=== PATIENT | male | born 1965 | race Caucasian/White ===

== ENCOUNTER 2018-02-08 08:40 | Observation (INO) ==
[2018-02-08] MEDS ORDERED: Aspirin 81 MG TAB.CHEW PO ONE (08:56)
[2018-02-08] MEDS ORDERED: Nitroglycerin 0.4 MG TAB.SUBL SL PRN (09:11)
--- NOTE | 2018-02-08 09:17 | Emergency Department Note ---
Disposition Clinical Impression: Elevated troponin, Atypical chest pain Pulmonary embolism Qualifiers: Pulmonary embolism type: other Chronicity: acute Acute cor pulmonale presence: without acute cor pulmonale Qualified Code(s): I26.99 - Other pulmonary embolism without acute cor pulmonale Disposition: Admitted As Inpatient Condition: Fair Referrals: Kyung Mancia CNP [Primary Care Provider] - Forms: ED Satisfaction Letter General Adult HPI - General Chief complaint: ED Chest Pain Stated complaint: CP Time Seen by Provider: 02/08/18 08:52 Nursing Notes Reviewed: Yes Vital Signs Reviewed: Yes - History of Present Illness HPI Narrative: Chief complaint is chest pain History this is a 52-year-old gentleman who comes in today complaining of pain that started across the right side of his upper chest going to the left side and was in both his scapulas. He said that started about 8:00 this morning he had no pain previous to that no nausea no shortness of breath at the time but then when he his thinks he was short of breath denies any diaphoresis. She was said he was fairly pale at the time came to her over at work and within the hour the pain is pretty much gone except from the back of his arms he said the pain was about a 7 and now is about a 2-4. He is resting comfortably. He denies any history of chest pain in the past no history of pulmonary embolisms no history of PE on no history of cardiac disease that he is aware of he does have high cholesterol and diabetes however he does have heart disease in his family but not at an early age. He does not take aspirin and did receive that here. He denies any reproducibility of the pain. Past medical history reviewed in nurse's notes reviewed family and social history reviewed. Pain Scale: 6 - Related Data Home Medications Medication Instructions Recorded Confirmed Ranitidine HCl [Zantac] 150 mg PO DAILY 07/04/15 02/08/18 metFORMIN [Glucophage] 1,000 mg PO BIDWM 07/04/15 02/08/18 Fenofibrate [Lofibra] 160 mg PO DAILY 04/16/16 02/08/18 Insulin Glargine,Hum.rec.anlog 15 unit SQ QAM 02/08/18 02/08/18 [Basaglar [place]pen U-100] Insulin Glargine,Hum.rec.anlog 30 unit SQ QPM 02/08/18 02/08/18 [Veronique Dowell U-100] Previous Rx's Medication Instructions Recorded Venlafaxine XR (24 HR) [Effexor Xr] 37.5 mg PO DAILY #30 cap.er.24h 12/16/16 Allergies Allergy/AdvReac Type Severity Reaction Status Date / Time No Known Allergies Allergy Verified 04/16/16 07:31 Review of Systems: Review of systems are positive for some shortness of breath and pain across his back and chest chest pain is now resolved remaining review of systems are negative. All systems ED: reviewed and negative except as stated. Past Medical History - Past Medical History Medical history: Reports: cancer, diabetes, GERD Psychiatric history: Reports: no psych history - Social History Smoking Status: Never smoker Smokeless Tobacco Status: No Alcohol use: Reports: none Drug use: Reports: none Physical Exam Temperature is 97.6 pulse is 65 and regular respirations are 15 and unlabored BP is 126/83 sets 100% on room air he is resting comfortably HEENT is normocephalic airways midline there is no drooling or stridor weeks members are moist neck is supple he has no scleral icterus is no cervical tenderness Cardia vascular is regular rate and rhythm without rubs or JVD Lungs are clear to auscultation bilaterally with good aeration his abdomen is soft nonsurgical good bowel sounds no masses Chest caceres free of trauma and tenderness he has a little bit a reproducible pain along the rhomboids of both scapulas. No signs of trauma no bony tenderness Extremities are present 4 good distal pulses Refill is brisk no pitting edema no calf tenderness Dermatologic skin is warm and dry without rash petechia or jaundice neurologic no further deficits cranial nerve motor sensory exam alert person place and time GCS is 15 Course Vital Signs Temperature 97.6 F 02/08/18 08:43 Pulse Rate 65 02/08/18 08:43 Respiratory Rate 15 02/08/18 08:43 Blood Pressure 126/83 02/08/18 08:43 O2 Sat by Pulse Oximetry 100 02/08/18 08:43 Temperature 97.6 F 02/08/18 09:42 Pulse Rate 75 02/08/18 09:59 Respiratory Rate 16 02/08/18 09:59 Blood Pressure 113/78 02/08/18 09:59 O2 Sat by Pulse Oximetry 98 02/08/18 09:59 Oxygen Delivery Oxygen Delivery Room Air Medical Decision Making - [facility] Narrative Medical decision making narrative: 0855 hours patient had an EKG performed shows a sinus rhythm his rate is 67 his QRS is 135 QTc is 424 no signs of ischemia he does have a right bundle branch block. Compared this with an EKG that he had done in 2016 shows a similar pattern at that time with a rate of 63. Denies start a cardiac workup nitroglycerin trial aspirin and reassess. He is in agreement with this plan. 951 hours: Patient's d-dimer is positive at more than 10 times his age. We will get a CTA to rule out PE he is low risk on well's criteria. Perc criteria cannot be used due to his age. His troponin is still pending and chest x-ray is return. Chest X-Ray 02/08/18 08:56 IMPRESSION: No acute cardiopulmonary disease D/ / Fortino Garcia MD / Fortino Garcia MD Interpreting Provider: Fortino Garcia MD 0955 hrs.: Patient's troponin is 0.06. Denies any pain at this time. We will do the CTA of his chest to rule out PE then he will need admission. Patient is updated on status. 1000 hrs.: Updated patient. He is pain-free he did get 1 nitroglycerin B think his pain was resolving prior to that. Update them on the status the CTA and admission and he is in agreement with the plan as is his . Chest X-Ray 02/08/18 08:56 IMPRESSION: No acute cardiopulmonary disease D/ / Fortino Garcia MD / Fortino Garcia MD Interpreting Provider: Fortino Garcia MD Chest CTA 02/08/18 09:53 IMPRESSION: 1. Right middle and right lower lobe pulmonary emboli with no evidence of infarct 2. Diffuse thyroid enlargement. This finding has been previously evaluated with ultrasound D/ / Chance Christensen MD / Chance Christensen MD Interpreting Provider: Chance Christensen MD 1056 hrs.: Patient does have PE and right middle and lower lobe started him on heparin for DVT and PE and will admit him with chest pain rule out ACS and PE. Patient's in agreement with plan. 1129 hrs.: Hospice his callback and accepted patient for admission. Patient's in agreement with admission. Started on heparin. - Lab Data Result diagrams: 02/08/18 09:14 02/08/18 09:14 Lab Results 02/08/18 02/08/18 02/08/18 Range/Units 09:14 09:14 09:14 WBC 6.4 (4.3-11.1) K/mcL RBC 4.59 (4.19-5.50) M/mcL Hgb 13.9 (12.9-16.9) g/dL Hct 39.5 (37.5-50.1) % MCV 86.1 (83.0-100.0) fL MCH 30.3 (28.0-33.3) pg MCHC 35.2 (31.6-35.5) g/dL RDW 13.2 (11.5-14.5) % Plt Count 178 (140-400) K/mcL MPV 13.3 H (9.4-12.4) fL Immature Gran % 0.3 (0-4) % Seg Neutrophils % 43.8 % Lymphocytes % 43.8 % Monocytes % 9.6 % Eosinophils % 1.9 % Basophils % 0.6 % Neutrophils # 2.8 (1.6-8.9) K/mcL Lymphocytes # 2.8 (0.6-4.6) K/mcL Monocytes # 0.6 (0.0-1.3) K/mcL Eosinophils # 0.1 (0.0-0.6) K/mcL Basophils # 0.0 (0.0-0.2) K/mcL APTT 32.2 (26.0-36.0) Seconds D-Dimer 688 H (0-500) ng/mLFEU Sodium 136 (136-145) mEq/L Potassium 3.8 (3.5-5.1) mEq/L Chloride 105 (98-107) mEq/L Carbon Dioxide 23 (23-29) mEq/L BUN 15 (6-20) mg/dL Creatinine 0.98 (0.70-1.30) mg/dL Est GFR ( Amer) > 60 (> 60) Est GFR (Non-Af Amer) > 60 (> 60) BUN/Creatinine Ratio 15 (6-26) Glucose 170 H (70-105) mg/dL Calculated Osmolality 287 (280-300) Calcium 9.0 (8.6-10.3) mg/dL Troponin I 0.06 H* (< 0.04) ng/mL Critical Care Time Critical Care Time: Yes Total Critical Care Time: 40 Attestation: Excluding any separately billable procedures
[2018-02-08 09:35] LABS: Basophils % 0.6 %; Eosinophils # 0.1 K/mcL (0.0-0.6); Eosinophils % 1.9 %; Hematocrit 39.5 % (37.5-50.1); Hemoglobin 13.9 g/dL (12.9-16.9); Immature Granulocytes % 0.3 % (0-4); Lymphocytes # 2.8 K/mcL (0.6-4.6); Lymphocytes % 43.8 %; Mean Corpuscular HGB Conc 35.2 g/dL (31.6-35.5); Mean Corpuscular Hemoglobin 30.3 pg (28.0-33.3); Mean Corpuscular Volume 86.1 fL (83.0-100.0); Mean Platelet Volume 13.3 fL (9.4-12.4); Monocytes # 0.6 K/mcL (0.0-1.3); Monocytes % 9.6 %; Neutrophils # 2.8 K/mcL (1.6-8.9); Platelet Count 178 K/mcL (140-400); Red Blood Count 4.59 M/mcL (4.19-5.50); Red Cell Distribution Width 13.2 % (11.5-14.5); Segmented Neutrophils % 43.8 %
[2018-02-08 09:45] LABS: Activated Partial Thrombo Time 32.2 Seconds (26.0-36.0)
[2018-02-08] MEDS ORDERED: 0.9 % Sodium Chloride 1,000 ML IVC ONE (09:52)
[2018-02-08 09:53] LABS: Troponin I 0.06 ng/mL (< 0.04)
[2018-02-08] MEDS ORDERED: Isovue-370 500 ML INFUS..BTL IV ONE (09:53)
[2018-02-08 09:54] LABS: BUN/Creatinine Ratio 15 (6-26); Blood Urea Nitrogen 15 mg/dL (6-20); Carbon Dioxide 23 mEq/L (23-29); Chloride 105 mEq/L (98-107); Glucose 170 mg/dL (70-105); Osmolality,Calculated 287 (280-300); Potassium 3.8 mEq/L (3.5-5.1); Sodium 136 mEq/L (136-145); eGFR For Non-African Americans > 60 (> 60)
[2018-02-08] MEDS ORDERED: *HR* Heparin 5,000 UNIT/ML VIAL IVP PRN ×2 (10:54)
[2018-02-08] MEDS ORDERED: *HR* Heparin 5,000 UNIT/ML VIAL IVP ONE (10:54)
[2018-02-08] MEDS: Heparin 25,000 UNIT/500 ML D5W 25,000 UNIT/500 ML BAG IVC SCH (11:26)
[2018-02-08 11:57] LABS: Heparin anti-factor XA UFH 0.04 IU/mL (0.30-0.70)
[2018-02-08 11:58] LABS: Prothrombin Time 11.5 Seconds (9.4-12.1)
[2018-02-08] MEDS ORDERED: Naloxone 0.4 MG/ML INJ IVP PRN (14:07)
[2018-02-08] MEDS ORDERED: D5% in Water 1,000 ML IVC PRN (14:20)
[2018-02-08] MEDS ORDERED: Dextrose Gel 15 GM/37.5 ML TUBE PO PRN ×2 (14:20)
[2018-02-08] MEDS ORDERED: *HR* Dextrose 50 % in Water (Syg) 50 ML SYRINGE IVP PRN (14:20)
--- NOTE | 2018-02-08 14:34 | Internal Med History&Physical ---
<Carl Alves P - Last Filed: 02/08/18 14:25> Date of Encounter: 02/08/18 Time of Encounter: 13:40 Internal Medicine - H&P: HPI Chief complaint: Chest pain Admitted From: Home Plans for Post Hospital Care: Home History of present illness: Mr. Gutierrez is a 52 year old male with past medical history significant for hyperlipidemia and diabetes who presents for 7/10 sharp chest pain across his chest, radiating across his upper back, and down both arms that started suddenly this morning. Patient reports feeling hot when his symptoms started but denies shortness of breath, diaphoresis, or nausea. reports patient did seem short of breath and appeared pale to her. Denies any treatment at home prior to arrival. Received aspirin and one nitroglycerin dose in ER. Is now reporting 1/10 pain only in his upper back. No prior history of DVT, PE, or other cardiac history besides hyperlipidemia. Reports mother and maternal uncle with cardiac history including open heart surgery. Past Med Surg Social Fam HX - Past Medical History Medical history: cancer, diabetes, GERD, hyperlipidemia Additional medical history: melanoma Psychiatric history: no psych history - Past Surgical History Additional surgical history: axillary node dissection left shoulder melona,port placed and removed,colonoscopy - Social History Smoking Status: Never smoker Smokeless Tobacco Status: No Alcohol use: none Drug use: none - Family History Mother Living Status: Age at : 93 Hx Family Cardiac Disorders: Yes Internal Medicine - H&P: Meds Ranitidine HCl [Zantac] 150 mg PO DAILY 07/04/15 [History] metFORMIN [Glucophage] 1,000 mg PO BIDWM 07/04/15 [History] Fenofibrate [Lofibra] 160 mg PO DAILY 04/16/16 [History] Venlafaxine XR (24 HR) [Effexor Xr] 37.5 mg PO DAILY #30 cap.er.24h 12/16/16 [Rx ] Insulin Glargine,Hum.rec.anlog [Basaglar Kwikpen U-100] 15 unit SQ QAM 02/08/18 [History] Insulin Glargine,Hum.rec.anlog [Basaglar Kwikpen U-100] 30 unit SQ QPM 02/08/18 [History] 3 Allergy/AdvReac Type Severity Reaction Status Date / Time No Known Allergies Allergy Verified 04/16/16 07:31 All Systems PM: A 10-system review of systems was performed and is negative for pertinent findings except as documented above in the HPI. - Constitutional Vitals: Temp Pulse Resp BP Pulse Ox 98.3 F 70 15 119/74 99 02/08/18 12:55 02/08/18 12:55 02/08/18 12:55 02/08/18 12:55 02/08/18 12:55 Exam: General: Alert and oriented. In no acute distress. Skin:Normal color, no rash, no lesions. HEENT:EOM, pupils equal, round and reactive. Cardiovascular:Normal S1 & S2, no rubs, murmurs or gallops. No JVD. Pulse regular. Lungs:Normal breath sounds, no wheezes or crackles. Respirations easy and non labored. Abdomen:Soft, non-tender, no rigidity. Extremities:No deformity, no edema or tenderness, no joint swelling or clubbing. Neurological:Normal cognition and motor skills. Pulses:Carotid and radial pulses normal +2. Rest of the physical exam is non contributory. Internal Med - H&P Results - Labs CBC & Chem 7: 02/08/18 09:14 02/08/18 09:14 - Assessment and plan (1) Pulmonary embolism Current Visit: Yes Status: Acute Assessment and plan: Right middle and right lower lobe PE on CTA of chest. Heparin drip started in ER, continue same. Continuous director of cardiac cath lab. Nasal canula oxygen as needed to maintain saturation above 92%. Bilateral lower extremity dopplers ordered. Qualifiers: Pulmonary embolism type: other Chronicity: acute Qualified Code(s): I26.99 - Other pulmonary embolism without acute cor pulmonale (2) Elevated troponin Current Visit: Yes Status: Acute Assessment and plan: ER EKG reported sinus rhythm with right bundle branch block unchanged from previous EKG. Continuous director of cardiac cath lab. Echo ordered. (3) Diabetes mellitus Current Visit: Yes Status: Chronic Assessment and plan: Blood sugar checks ACHS. Hold home medications. Start ACHS sliding scale during stay. 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 Gutierrez is a 52 year old male All Systems PM: A 10-system review of systems was performed and is negative for pertinent findings except as documented above in the HPI. - Constitutional Vitals: Temp Pulse Resp BP Pulse Ox 98.3 F 70 15 119/74 99 02/08/18 12:55 02/08/18 12:55 02/08/18 12:55 02/08/18 12:55 02/08/18 12:55 Internal Med - H&P Results - Labs CBC & Chem 7: 02/08/18 09:14 02/08/18 09:14 - Assessment and plan (1) Pulmonary embolism Current Visit: Yes Status: Acute Qualifiers: Pulmonary embolism type: other Chronicity: acute Qualified Code(s): I26.99 - Other pulmonary embolism without acute cor pulmonale (2) Elevated troponin Current Visit: Yes Status: Acute (3) Diabetes mellitus Current Visit: Yes Status: Chronic Qualifiers: Diabetes mellitus type: type 2 Diabetes mellitus oysterman insulin use: with oysterman use Diabetes mellitus complication status: without complication Qualified Code(s): E11.9 - Type 2 diabetes mellitus without complications; Z79.4 - roasterman (current) use of insulin - Time Spent With Patient Total time spent is greater than 50% in coordination of care (as documented) at patient's floor/unit and/or counseling patient: - Attending Attestation Patient was seen and examined in the emergency room with his spouse at his bedside on 02/08/18 hemodynamically stable, nontender respiratory or painful distress. Acute pulmonary embolism without heartstring. Continue heparin. Patient is not hypoxic. The rest of details is as in MAYI Alves's documentation.
[2018-02-08] MEDS: Fenofibrate 54 MG TABLET PO SCH (16:21)
[2018-02-08] MEDS: Venlafaxine XR (24 HR) 37.5 MG CAP.ER.24H PO SCH (16:21)
[2018-02-08] MEDS: Famotidine 20 MG TABLET PO SCH (16:21)
[2018-02-08] MEDS: Insulin LISPRO 300 UNITS/3 ML VIAL SQ SCH (18:02)
[2018-02-08] MEDS ORDERED: Perflutren Lipid Microsphere 1.3 ML in 0.9 % Sodium Chloride 8.7 ML IVP ONE (19:42)
[2018-02-08] MEDS ORDERED: Insulin LISPRO 300 UNITS/3 ML VIAL SQ SCH (21:00)
[2018-02-08] MEDS ORDERED: *HR* Acetaminophen w/Cod 300-30 mg 1 TAB TABLET PO ONE (22:26)
[2018-02-09 01:23] LABS: Basophils # 0.1 K/mcL (0.0-0.2); Basophils % 0.9 %; Eosinophils # 0.2 K/mcL (0.0-0.6); Hematocrit 38.3 % (37.5-50.1); Hemoglobin 13.1 g/dL (12.9-16.9); Immature Granulocytes % 0.2 % (0-4); Lymphocytes # 4.7 K/mcL (0.6-4.6); Lymphocytes % 57.9 %; Mean Corpuscular HGB Conc 34.2 g/dL (31.6-35.5); Mean Corpuscular Hemoglobin 29.8 pg (28.0-33.3); Mean Corpuscular Volume 87.2 fL (83.0-100.0); Monocytes # 0.7 K/mcL (0.0-1.3); Monocytes % 8.3 %; Neutrophils # 2.5 K/mcL (1.6-8.9); Platelet Count 175 K/mcL (140-400); Red Blood Count 4.39 M/mcL (4.19-5.50); Red Cell Distribution Width 13.5 % (11.5-14.5); Segmented Neutrophils % 30.7 %
[2018-02-09 01:49] LABS: BUN/Creatinine Ratio 13 (6-26); Blood Urea Nitrogen 12 mg/dL (6-20); Calcium 8.9 mg/dL (8.6-10.3); Carbon Dioxide 22 mEq/L (23-29); Chloride 108 mEq/L (98-107); Glucose 153 mg/dL (70-105); Osmolality,Calculated 291 (280-300); Potassium 3.9 mEq/L (3.5-5.1); Sodium 139 mEq/L (136-145); eGFR For Non-African Americans > 60 (> 60)
--- NOTE | 2018-02-09 06:14 | Electrocardiograph Report ---
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
[2018-02-09] MEDS: Venlafaxine XR (24 HR) 37.5 MG CAP.ER.24H PO SCH (09:20)
[2018-02-09] MEDS: Fenofibrate 54 MG TABLET PO SCH (09:20)
[2018-02-09] MEDS: Famotidine 20 MG TABLET PO SCH (09:20)
[2018-02-09] MEDS: Insulin LISPRO 300 UNITS/3 ML VIAL SQ SCH ×2 (09:21→12:57)
[2018-02-09] MEDS: Heparin 25,000 UNIT/500 ML D5W 25,000 UNIT/500 ML BAG IVC SCH (09:28)
[2018-02-09 11:34] VITALS: BP 109/69
--- NOTE | 2018-02-09 12:29 | Internal Med Progress Note ---
Hospitalist Progress Note - Encounter Date of Encounter: 02/09/18 Time of Encounter: 12:30 - Exam Vitals: Temp Pulse Resp BP Pulse Ox 98.4 F 75 18 109/69 97 02/09/18 11:33 02/09/18 11:33 02/09/18 11:33 02/09/18 11:33 02/09/18 11:33 Exam: General: Alert and oriented. In no acute distress. Skin:Normal color, no rash, no lesions. HEENT:EOM, pupils equal, round and reactive. Cardiovascular:Normal S1 & S2, no rubs, murmurs or gallops. No JVD. Pulse regular. Lungs:Normal breath sounds, no wheezes or crackles. Respirations easy and non labored. Abdomen:Soft, non-tender, no rigidity. Extremities:No deformity, no edema or tenderness, no joint swelling or clubbing. Neurological:Normal cognition and motor skills. Pulses:Carotid and radial pulses normal +2. Rest of the physical exam is non contributory. - Assessment and Plan (1) Pulmonary embolism Current Visit: Yes Status: Acute Assessment and Plan: Right middle and right lower lobe PE on CTA of chest. Heparin drip started in the ER and we will switch him to xarelto. Spoke with hematology who determined no acute need to see him inpatient and will follow up with him as an outpatient Bilateral lower extremity dopplers came back preliminary WNL (2) Elevated troponin Current Visit: Yes Status: Acute Assessment and Plan: ER EKG reported sinus rhythm with right bundle branch block unchanged from previous EKG. Continuous nurse monitoring. Echo ordered. (3) Diabetes mellitus Current Visit: Yes Status: Chronic Assessment and Plan: Blood sugar checks ACHS. Hold home medications. Start ACHS sliding scale during stay. - Time Spent with Patient Total time spent is greater than 50% in coordination of care (as documented) at patient's floor/unit and/or counseling patient: Internal Medicine: Result - Labs CBC & Chem 7: 02/09/18 00:55 02/09/18 00:55 Labs: Short CBC 02/09/18 Range/Units 00:55 WBC 8.1 (4.3-11.1) K/mcL Hgb 13.1 (12.9-16.9) g/dL Hct 38.3 (37.5-50.1) % Plt Count 175 (140-400) K/mcL Neutrophils # 2.5 (1.6-8.9) K/mcL BMP 02/09/18 00:55 Sodium 139 Potassium 3.9 Chloride 108 H Carbon Dioxide 22 L BUN 12 Creatinine 0.93 Glucose 153 H Calcium 8.9 - ABG Interpretation ABG results: PT/INR, D-dimer PT 11.5 Seconds (9.4-12.1) 02/08/18 11:21 D-Dimer 688 ng/mLFEU (0-500) H 02/08/18 09:14 - Impressions Impressions Echocardiogram 02/08/18 14:23 Impressions: LVEF 70%. Normal LV chamber size, wall thickness and function. Normal left ventricular diastolic function. Normal right ventricular structure and function. No significant valvular dysfunction. IVC not seen, indeerminate pulmonary pressures, likely normal. Left Ventricular Wall Motion: Rest Echo Findings All wall segments showed normal motion. Findings: Study Quality * Technically adequate exam. ECG Findings * Normal sinus rhythm. Left Ventricle * LVEF 70%. * Normal LV chamber size, wall thickness and function. * Normal left ventricular diastolic function. Right Ventricle * Normal right ventricular structure and function. Left Atrium * Normal left atrial size. Right Atrium * Normal right atrial size. Interatrial Septum * Interatrial septum not well evaluated. Aortic Valve * Trileaflet aortic valve. * Trileaflet aortic valve with normal function. Mitral Valve * Normal mitral valve structure and function. * Trace mitral regurgitation. Tricuspid Valve * Normal tricuspid valve structure and function. * Mild tricuspid regurgitation. * Estimated RA pressure is IVC not seen mmHg. * Estimated RVSP is RV-RA gradient 18 (normal) mmHg. Pulmonic Valve * Normal pulmonic valve structure and function. Aorta * Normally sized aortic root. Pericardium * The pericardium appears normal. IVC * The IVC is not well evaluated. - VTE Reasons for not Prescribing Prophylaxis: Not indicated-Anticoagulated or INR therapeutic Consult Discharge Plan - Plan Referrals: Kyung Mancia CNP [Primary Care Provider] - Prescriptions: Rivaroxaban [Xarelto] 15 mg PO BID 21 Days #42 tablet Rivaroxaban [Xarelto] 20 mg PO DAILY 90 Days #90 tablet (1) Pulmonary embolism Qualifiers: Pulmonary embolism type: other Chronicity: acute (3) Diabetes mellitus Qualifiers: Diabetes mellitus type: type 2 Diabetes mellitus fpc insulin use: with fpc use Diabetes mellitus complication status: without complication Qualified Code(s): E11.9 - Type 2 diabetes mellitus without complications; 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
--- NOTE | 2018-02-09 12:52 | Discharge Summary ---
Orders not resulted at time of discharge: Pending orders 02/10/18 04:00 Heparin anti-factor XA UFH [COAG] Routine Date of Encounter: 02/09/18 Time of Encounter: 12:40 - Discharge Diagnosis (1) Pulmonary embolism Priority: Primary Status: Acute Assessment and Plan: 52 year old male with past medical history significant for hyperlipidemia and diabetes who presents for 7/10 sharp chest pain across his chest, radiating across his upper back, and down both arms that started suddenly this morning. Patient reports feeling hot when his symptoms started but denies shortness of breath, diaphoresis, or nausea. reports patient did seem short of breath and appeared pale to her. Denies any treatment at home prior to arrival. Received aspirin and one nitroglycerin dose in ER. Is now reporting 1/10 pain only in his upper back. No prior history of DVT, PE, or other cardiac history besides hyperlipidemia. He was assessed with an acute PE with right middle and right lower lobe PE on CTA of chest. He was started on a heparin drip in the ER. Dopplers of the lower extremity were obtained to rule out DVT with prelim results negative. He was switched to xarelto the following day. Spoke with hematology who determined no acute need to see him inpatient and will follow up with him as an outpatient. He will be on xarelto 15mg po BID for 21 days and xarelto 20mg po daily for 6months thereafter. To follow up with heme/onc outpatient Qualifiers: Pulmonary embolism type: other Chronicity: acute Qualified Code(s): I26.99 - Other pulmonary embolism without acute cor pulmonale (2) Elevated troponin Priority: Secondary Status: Acute Assessment and Plan: ER EKG reported sinus rhythm with right bundle branch block unchanged from previous EKG. 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 (3) Diabetes mellitus Priority: Secondary Status: Chronic Assessment and Plan: Blood sugar checks ACHS. Hold home medications. Start ACHS sliding scale during stay. 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 Gutierrez is a 52 year old male - Time Spent with Patient Total time spent providing and/or coordinating discharge services: - Discharge Medications Prescriptions: Rivaroxaban [Xarelto] 15 mg PO BID 21 Days #42 tablet Rivaroxaban [Xarelto] 20 mg PO DAILY 90 Days #90 tablet Home Medications: Ranitidine HCl [Zantac] 150 mg PO DAILY 07/04/15 [History] metFORMIN [Glucophage] 1,000 mg PO BIDWM 07/04/15 [History] Fenofibrate [Lofibra] 160 mg PO DAILY 04/16/16 [History] Venlafaxine XR (24 HR) [Effexor Xr] 37.5 mg PO DAILY #30 cap.er.24h 12/16/16 [Rx ] Insulin Glargine,Hum.rec.anlog [Basaglar Kwikpen U-100] 15 unit SQ QAM 02/08/18 [History] Insulin Glargine,Hum.rec.anlog [Basaglar Kwikpen U-100] 30 unit SQ QPM 02/08/18 [History] Rivaroxaban [Xarelto] 15 mg PO BID 21 Days #42 tablet 02/09/18 [Rx] Rivaroxaban [Xarelto] 20 mg PO DAILY 90 Days #90 tablet 02/09/18 [Rx] Allergies/Adverse Reactions: 3 Allergy/AdvReac Type Severity Reaction Status Date / Time No Known Allergies Allergy Verified 04/16/16 07:31 Date of admission: 02/08/18 12:12 Primary care physician: Kyung Mancia CNP Consults: 02/09/18 12:24 Consult to Oncology Hematology [CONS] Routine Consulting Provider: Ebony Lundy Reason for Consult: acute PE Call Completed: Yes - Constitutional Vitals: Temp Pulse Resp BP Pulse Ox 98.4 F 75 18 109/69 97 02/09/18 11:33 02/09/18 11:33 02/09/18 11:33 02/09/18 11:33 02/09/18 11:33 Exam: General: Alert and oriented. In no acute distress. Skin:Normal color, no rash, no lesions. HEENT:EOM, pupils equal, round and reactive. Cardiovascular:Normal S1 & S2, no rubs, murmurs or gallops. No JVD. Pulse regular. Lungs:Normal breath sounds, no wheezes or crackles. Respirations easy and non labored. Abdomen:Soft, non-tender, no rigidity. Extremities:No deformity, no edema or tenderness, no joint swelling or clubbing. Neurological:Normal cognition and motor skills. Pulses:Carotid and radial pulses normal +2. Rest of the physical exam is non contributory. - Patient Status Disposition: Home, Self-Care Condition: Good - Discharge Instructions Instructions: Pulmonary Embolism (DC) Follow Up With: Kyung Mancia CNP [Primary Care Provider] - - VTE Reasons for not Prescribing Prophylaxis: Not indicated-Anticoagulated or INR therapeutic
[2018-02-09] MEDS ORDERED: *HR* Rivaroxaban 15 MG TABLET PO SCH (14:15)
== END 2018-02-09 15:38 | disposition home or self-care (01) ==
LOC: 3BNU 08:40 → EMEROOARM 08:40 → 3BNU 12:36
PROVIDERS: ADMIT Internal Medicine; ATTEND Internal Medicine